=== PATIENT | female | born 1985 | race Caucasian/White ===

== ENCOUNTER 2025-09-12 10:23 | Emergency (ER) | payer OTHER, SELFPAY ==
--- NOTE | ~2025-09-12 | XR_ITS ---
Examination: XR knee RT 3V, XR knee LT 3V Clinical History: fall/knee pain, MEDIAL KNEE PAIN ON LEFT Comparison: None Technique: 3 views right knee, 3 views left knee Findings/impression: Right knee: 1. No fracture, dislocation, or effusion right knee. Left knee: 1. No fracture, dislocation, or effusion left knee. Reviewed, dictated and finalized at location [facility] [employer]
--- NOTE | 2025-09-12 10:26 | ED.LOWEXIN ---
HPI - Extremity Injury (Lower) General Chief Complaint: Extremity Injury, Lower Stated Complaint: L Knee Pain Time Seen by Provider: 09/12/25 10:25 Source: patient Mode of arrival: ambulatory Limitations: no limitations History of Present Illness HPI Narrative: Ana is a 39 year old female patient presenting to the clinic today with c/o left knee pain x x4 days. 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 Has pain to the left anterior knee but tender to palpation over the left medial knee. Has been taking ibuprofen, heat, compression brace, and ice. Pain is worse when ambulating and when going from a sitting to a standing position. Related Data Home Medications ?Medication ?Instructions ?Recorded ?Confirmed ?Last Taken ?Type blood-glucose meter (OneTouch 09/12/25 09/12/25 Unknown History Verio Flex Meter) magnesium oxide 400 mg (241.3 mg mg 09/12/25 Unknown History magnesium) tablet Allergies Allergy/AdvReac Type Severity Reaction Status Date / Time Penicillins Allergy Unknown Verified 11/08/21 14:57 Sulfa (Sulfonamide Allergy Unknown Verified 11/08/21 14:57 Antibiotics) Review of Systems Review of Systems: Pertinent positives per HPI. Patient denies any fever, chills, rash, headache, visual changes, dizziness, cough, runny nose, sore throat, shortness of breath, chest pain, palpitations, nausea, vomiting, diarrhea, constipation, abdominal pain, or any urinary issues. PMFSH Comments At the time of my signature, I reviewed and agree with the nursing past medical, surgical, social, and family history. There is no relevant family history pertinent to the patient complaint. Exam Narrative: General: Well-developed, morbidly obese, in no apparent distress Head: Normocephalic, atraumatic. Cardio: Regular rate and rhythm, s1 and s2 normal, no murmur appreciated. Resp: Clear to auscultation bilaterally, no rhonchi, rales, wheezing or rubs. Musculoskeletal: No deformity, pain with flexion of the knee as well as tender to palpation over the MCL/medial knee, grossly normal range of motion, muscle strength strong and equal, peripheral pulse strong, no edema, no cyanosis, normal gait and station Course Course Emergency Course: Portions of this record may have been created with voice recognition software. Level of Care: [facility] Care Visit Vital Signs Vital signs: Vital Signs Temperature 36.6 C 09/12/25 10:40 Pulse Rate 77 09/12/25 10:40 Respiratory Rate 16 09/12/25 10:40 Blood Pressure 137/85 09/12/25 10:40 Pulse Oximetry 100 09/12/25 10:40 Temperature 36.6 C 09/12/25 10:40 Pulse Rate 77 09/12/25 10:40 Respiratory Rate 16 09/12/25 10:40 Blood Pressure 137/85 09/12/25 10:40 Pulse Oximetry 100 09/12/25 10:40 Vital signs reviewed MDM - Extremity Injury (Lower) MDM Narrative Medical decision making narrative: At the time of visit patient is resting comfortably on the exam table. Patient appears to be nontoxic. C/o left knee pain x x4 days. 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 Has pain to the left anterior knee but tender to palpation over the left medial knee. Has been taking ibuprofen, heat, compression brace, and ice. Pain is worse when ambulating and when going from a sitting to a standing position. On exam patient has no obvious swelling or deformity, pain with flexion of the knee as well as tender to palpation over the MCL/medial knee, grossly normal range of motion, muscle strength strong and equal, peripheral pulse strong, no edema, no cyanosis, normal gait and station. X-ray of the left knee was ordered. Diagnostics: X-ray left knee was performed and was negative for any sign of fracture or malalignment. Plan: I suspect patient has a left MCL sprain. Work note was given. Recommend wearing a hinged knee brace when up and ambulating. Supportive measures were discussed with the patient and they voiced understanding discharge instructions and agrees to treatment plan. Return precautions reviewed Differential Diagnosis Differential diagnosis: Likely acute internal derangement of knee and other (Knee sprain, tibia fracture, femur fracture, contusion, soft tissue injury) Imaging Data Radiologist's impression: X-ray of the left knee is negative for any fracture or malalignment. Discharge Plan Discharge Clinical Impression: MCL sprain of left knee Qualifiers: Encounter type: initial encounter Qualified Code(s): S83.412A - Sprain of medial collateral ligament of left knee, initial encounter Patient Disposition: Home Condition: Stable Instructions: Antibiotic Form, Knee Sprain (ED), Knee Pain (ED) Additional Instructions: X-ray of the bilateral knee was negative for any sign of fracture or malalignment. Rest, ice, elevate, and wear godfrey wrap as directed May wear hinged knee brace when up ambulating Tylenol/motrin for pain as discussed. Gradually bear weight No running or sports until healed. Follow up with your PCP if symptoms persist more than 1 week. Patient Language: Setswana Prescriptions: No Action (DME) blood-glucose meter [OneTouch Verio Flex meter] Misc MISCELLANEOUS magnesium oxide 400 mg (241.3 mg magnesium) tablet Follow-up/Referrals: UNKNOWN,DOCTOR [Non-Staff] Stand Alone Forms: Work/School Release IP Time of Disposition: 11:14 Quality NIHSS Nursing Documentation ED NIHSS nursing documentation: reviewed/agree
[2025-09-12 10:40] VITALS: BP 137/85; PULSE 77; RESP 16; TEMP 36.6; O2SAT 100
== END 2025-09-12 11:25 | disposition home or self-care (01) ==
PROVIDERS: Emergency Provider Nurse Practitioner Family
DX: S83.412A Sprain of medial collateral ligament of left knee, initial encounter (principal); W01.0XXA Fall on same level from slipping, tripping and stumbling without subsequent striking against object, initial encounter; Y99.0 Civilian activity done for income or pay; K21.9 Gastro-esophageal reflux disease without esophagitis
CPT/HCPCS: 73562; 99204; G0463